=== PATIENT | female | born 1980 | race Caucasian/White ===

== ENCOUNTER → 2022-11-23 18:10 | Outpatient (BNVA) | payer OTHER, SELFPAY | PROVIDERS: Family Provider Nurse Practitioner Family; Visit Provider Emergency Medicine | DX: S99.912A Unspecified injury of left ankle, initial encounter (principal); S99.922A Unspecified injury of left foot, initial encounter; V49.9XXA Car occupant (driver) (passenger) injured in unspecified traffic accident, initial encounter; M79.89 Other specified soft tissue disorders | CPT/HCPCS: 73610; 73630 ==

== ENCOUNTER 2022-11-23 18:44 | Emergency (ER) | payer OTHER, SELFPAY ==
[2022-11-23 19:01] VITALS: BP 167/117; PULSE 104; RESP 16; TEMP 36.7; O2SAT 95; BMI 33.4
--- NOTE | 2022-11-23 19:10 | ED_ITS ---
HPI - Extremity Problem General: Chief complaint: Extremity Injury, Lower Stated complaint: left foot injury Time Seen by Provider: 11/23/22 19:02 Source: patient History of Present Illness: 42-year-old female sent from urgent care with a left distal fibular fracture. She reports falling out of a [id number], injuring her ankle. She is in quite a bit of pain. MD Complaint: extremity pain and joint pain Pain Consistency: constant Location: left and lower extremity Quality: aching Radiation: none Relieving factors: immobilization Exacerbating factors: range of motion and weight bearing Associated symptoms: Deny fever(s), rash or short of breath Context: other (Injury) Review of Systems Const: Denies: fever(s) Skin/Breast: Denies: rash Physical Exam Const: COMMON NORMALS: no acute distress GENERAL APPEARANCE: cooperative; not ill appearing HENMT: COMMON NORMALS: normocephalic and atraumatic HEAD & SCALP: normocephalic and atraumatic Eye: COMMON NORMALS: Equal, round and reactive pupils present and EOMs intact bilaterally PUPIL: Yes Equal, round and reactive pupils present Neck/C-Spine: GENERAL: Yes trachea midline Chest: CHEST: Yes Symmetrical chest wall rise Resp: COMMON NORMALS: normal respiratory effort, No use of accessory muscles and clear to auscultation bilaterally AUSCULTATION: clear to auscultation bilaterally Cardio: COMMON NORMALS: regular rate and regular rhythm RATE: regular rate RHYTHM: regular rhythm Extremity: NARRATIVE EXTREMITY EXAM: Exam reveals deformity to left ankle. There is no proximal tenderness of the leg. Pulses and sensation are intact. There is tenderness over the distal fibula and medial malleolus. Neuro: RONALD COMA SCALE: document GCS findings Ronald coma scale eye opening: Spontaneous [place] coma scale verbal response: Orientated Ronald coma scale motor response: Obey commands Ronald coma scale total score: 15 Course Vital Signs: Vital signs: Vital Signs Temperature 98.1 F 11/23/22 19:01 Pulse Rate 104 H 11/23/22 19:01 Respiratory Rate 16 11/23/22 19:01 Blood Pressure 167/117 11/23/22 19:01 Pulse Oximetry 95 11/23/22 19:01 Oxygen Delivery Me thod 11/23/22 19:01 MDM - Extremity (Nontraumatic) Medical Decision Making Patient is splinted at 90 degrees in a stirrup and short leg posterior splint. This is following an intramuscular injection of Dilaudid for pain control. Crutches for weightbearing. We will have her follow-up with foot and ankle surgery this week. She will likely require ORIF. Discharge Plan Discharge Patient Disposition: Home Clinical Impression: Ankle fracture Qualifiers: Encounter type: initial encounter Fracture type: closed Laterality: left Qualified Code(s): S82.892A - Other fracture of left lower leg, initial encounter for closed fracture Condition: Stable Prescriptions: New Percocet 7.5-325 mg tablet 1 tab PO Q6H PRN (Reason: pain) Qty: 10 0RF No Action medroxyprogesterone [Depo-Provera] 150 mg/mL syringe IM Discharge Orders: Discharge ED (Routine); Ordered 11/23/22 Ordered By: Kirt Pruitt Referrals: Steve Landon DPM [Physician] - 1-3 days Kaushal Bonilla [Primary Care Provider] - Patient Instructions: Ankle Fracture (ED), Opioid Safety, Pain Management Activity Restrictions/Additional Instructions: Return for worsening pain despite treatment, any other concerns. Case management has been consulted to make you an appointment with foot and ankle surgery/podiatry Coding Level of Care Code ED Wire Loop Machine Operator for Frank Meyer
[2022-11-23] MEDS: ondansetron 4 MG Tablet PO (19:26)
[2022-11-23] MEDS: oxyCODONE-APAP 5-325 mg Tablet 2 TAB PO (19:26)
[2022-11-23] MEDS: HYDROmorphone 1 mg/mL INJ 1 mL 2 MG IM (19:26)
--- NOTE | 2022-11-24 12:51 | DCPLANNER ---
Addendum entered by Rose Birch 11/25/22 14:15: Patient had an appointment scheduled with podiatry - patient did attend appointment. Original Note: manager video had message to schedule a follow up appointment for patient with podiatry. manager video sent patients information to the front office staff at podiatry. Patients information will be printed and reviewed. Clinic will call patient with appointment information.
== END 2022-11-23 20:04 | disposition home or self-care (01) ==
PROVIDERS: Emergency Provider Emergency Medicine; PCP Family Medicine
DX: S82.832A Other fracture of upper and lower end of left fibula, initial encounter for closed fracture (principal); W17.89XA Other fall from one level to another, initial encounter
CPT/HCPCS: 96372; 99284; E0114; J1170; Q0162

== ENCOUNTER 2022-11-26 15:29 | Outpatient (CLI) | payer OTHER, SELFPAY ==
--- NOTE | 2022-11-26 15:30 | CT_ITS ---
WS: [id number] CT LEFT ANKLE, NONCONTRAST, 3-D. HISTORY: Left Trimalleolar fracture- SURGICAL PLANNING Technique: All CT scans at [facility] use at least one of these dose optimization techniques: automated exposure control; mA and/or kV adjustment per patient size (includes targeted exams where dose is matched to clinical indication); or iterative reconstruction. DLP: 140.52 mGy.cm COMPARISON: 11/23/2022 Markedly comminuted fracture involving the distal fibula. Fracture involves the distal 4 cm of the fi bula with multiple fragments. There is lateral displacement by up to 4 mm. There are multiple small o sseous fragments in the talofibular joint space and also at the distal tibiofibular joint space. There is an additional fracture involving the lateral distal tibia extending over a length of 1.9 cm. Fracture is displaced from the parent bone by 6 mm. There are multiple small osseous fragments invol ving the lateral tibial cortex but fracture also extends to the tibiotalar joint space. The medial ma lleolus and the posterior malleolus are otherwise intact. There is mild persistent widening of the ankle mortise up to 4.6 mm but improved since the radiograph of 11/23/2022. Moderate-sized calcaneal spur measuring 8 mm. Anterior calcaneal process is intact. No talar fracture . Well-corticated osseous or calcific densities in the medial foot adjacent to the navicular. These a re not related to the trauma. Moderate soft tissue edema surrounding the ankle and foot. Small joint effusion at the ankle. Entheso pedro Achilles tendon. CT/CT ankle LT wo con* [id number] IMPRESSION: 1. Comminuted fracture distal 4 cm of the fibula with displacement of fracture fragments by 4 mm. 2. Additional fracture involving the lateral distal tibia displaced by 6 mm. T his fracture involves the lateral cortex but does extend to the tibiotalar dez culation. 3. There are multiple small osseous fragments from the injury that tibiotalar joint space. 4. No additional acute fractures. 5. Mild persistent widening of the ankle mortise but much improved as compared to 11/23/2022.
== END 2022-11-26 15:30 | disposition home or self-care (01) ==
PROVIDERS: PCP Family Medicine; Visit Provider Podiatrist Foot & Ankle Surgery
DX: S82.842A Displaced bimalleolar fracture of left lower leg, initial encounter for closed fracture (principal); S93.05XA Dislocation of left ankle joint, initial encounter; X58.XXXA Exposure to other specified factors, initial encounter
CPT/HCPCS: 73700

== ENCOUNTER 2022-11-28 10:27 | Day surgery (SDC) | payer OTHER, SELFPAY ==
[2022-11-27 08:18] VITALS: BMI 33.4
[2022-11-28] VITALS (11 sets, daily range): BP systolic 124–164; BP diastolic 77–108; PULSE 75–91; RESP 16–18; TEMP 36.1–36.6; O2SAT 96–100
[2022-11-28] MEDS: gabapentin 300 mg Capsule PO (11:02)
[2022-11-28] MEDS: CELEcoxib 200 mg Capsule 400 MG PO (11:03)
[2022-11-28] MEDS: sodium chloride 0.9% 1,000 ML 30 ML IV (11:04)
--- NOTE | 2022-11-28 11:08 | W.PM.OPSUD ---
Surgery/Procedure H&P Update DATE OF PROCEDURE: November 28, 2022 DATE H&P PERFORMED: 11/24/22 CHANGES TO PREVIOUS DOCUMENTATION: None PREOP DIAGNOSIS: Left trimalleolar fracture PLANNED PROCEDURE: Operation Date: 11/28/22 11:45 Proposed Procedures p Open reduction internal fixation left trimalleolar fracture 87665,S82.852A(Left) - Steve Landon DPM
--- NOTE | 2022-11-28 11:08 | PM.OP ---
Operative Report Date of procedure: November 28, 2022 Pre-op diagnosis: Preop Diagnosis Left trimalleolar fracture equivalent Post-op diagnosis: Same Post-op findings: Syndesmotic disruption appreciated as well as medial gutter widening consistent with deltoid ligament involvement Procedure done: Open reduction internal fixation left trimalleolar fracture [id number] Implants: Dennison anatomic fibular plate, Imer 3.5 mm locking and nonlocking screws, Arthrex tight rope XP, 2-0 Vicryl, 3-0 Vicryl, skin libia Surgeon: Steve Landon D.P.M. Data Integration Developer: Jana Covarrubias Estimated blood loss: 5 40 IV fluids: None Urine output: 0 Complications: None Brief History: Left trimalleolar equivalent fracture.? Date of injury 11/23/2022, [id number] injury X-ray taken 11/23/2022 in the emergency department consistent with trimalleolar equivalent with lateral displacement of the talus within the ankle mortise.? There is a comminuted fracture of the distal fibula, deltoid interruption with medial gutter widening and poorly visualized posterior malleolus fracture but will require CT scan for further evaluation and surgical planning. Remain strict nonweightbearing with posterior splint and elevate while resting. Will order CT scan left ankle without contrast, on oblique view I can visualize a posterior malleolus fracture would like to get better imaging on this for surgical planning.? Unable to visualize posterior malleolus fracture from the AP or lateral view on x-ray. patient to remain NWB in a splint utilizing a wheelchair scheduling surgery for an ORIF to the left ankle on Thursday11/28/22-we will perform soft tissue check in clinic evening Patient denies history of blood clots, no history of neoplasm, she is on depot Provera, does not smoke.? Advised aspirin to be taken daily after surgery to help potentially reduce the risk of deep vein thrombosis. I reviewed at length with the patient, the risks, potential complications, benefits, alternatives, expectations, and typical outcomes associated with the surgery. The risks and potential complications were explained in detail, including but not limited to infection, wound dehiscence or soft tissue complications, bleeding and hematoma, chronic edema, neuritis or nerve damage producing numbness or chronic pain, CRPS, failure to relieve pain or worsening pain, thick / painful / unsightly scar, limited motion / stiffness, malposition, delayed union, malunion, or nonunion, fracture, reaction to implants, anesthetic complications, venous thromboembolism, and deformity recurrence.? I discussed the notion of no regrets with the patient as it pertains to complications and outcomes. The patient seemed to understand the nature of the proposed care and required convalescence. They asked appropriate questions, answered to their satisfaction. They are aware no guarantees can be made as to a satisfactory outcome and they understand there may be other possible unforeseen complications or outcomes not listed here that will be treated accordingly if they arise. There were no written or implied guarantees given to the patient. They gave informed consent to proceed. Procedure: Under mild sedation the patient was brought to the operating room and placed on the operating table in supine position. A timeout was performed. Anesthesia was then administered by the anesthesia service. Of note popliteal block to the left lower extremity was performed per anesthesia service greatly appreciated. Well-padded pneumatic tourniquet applied to high calf to the left lower extremity. The left lower extremity was scrubbed, prepped and draped utilizing normal aseptic technique. Left foot and ankle were exanguinated with a Esmarch bandage and the tourniquet inflated to 250 mmHg. Attention was directed to the lateral aspect of the left ankle where the lateral malleolus was palpated. Directly over the lateral malleolus and over the distal fibula a linear longitudinal incision was made through skin with a number #15 blade with dissection carried down through subcu tissue to the layer periosteum. A comminuted fracture was appreciated at the lateral malleolus. Periosteum was left intact to help maintain fragment position. The lateral malleolus was reduced and pulled out to length and derotated followed by fixation utilizing standard AO technique and Dennison anatomic fibular plate with a combination of 3.5 locking and nonlocking screws with excellent bony apposition and compression noted. 4 screws proximal and 3 screws distal were performed followed by cotton hook test which yielded syndesmotic injury with increased tib-fib clear space and diastases intraoperatively. A Arthrex tight rope XP was then utilized to stabilize the syndesmosis from lateral to medial Quadra cortically approximately 2 cm proximal and parallel to the ankle mortise with excellent bony apposition and compression noted, this was tightened with ankle joint at neutral. Intraoperative C arm utilized to confirm excellent placement of hardware in all 3 standard views AP, oblique and lateral view, hardware did not violate the ankle mortise and anatomic reduction of the ankle mortise was appreciated and noted to be congruent. The incision was flushed with copious amounts of sterile skin solution and closed in a layered fashion. Periosteum and deep fascia closed with 2-0 Vicryl, subcutaneous tissue reapproximated 3-0 Vicryl and skin with libia. The incision was then dressed with Adaptic, sterile 4 x 4's, Kerlix. Of note patient had serous filled fracture blisters at the medial ankle that were left undisturbed and were not ruptured during the procedure, this was appreciated preoperatively. No fracture blisters appreciated laterally. A well-padded multilayer compressive posterior splint/Gaitan splint was then applied with ankle joint in neutral position. Tourniquet was then deflated and a prompt hyperemic response was noted to the distal digits of the left foot. Patient tolerated the procedure and anesthesia well and was transferred to the PACU with vital signs stable and vascular status intact. Following a period of postoperative monitoring she will be discharged home is to remain strict nonweightbearing, elevate her foot while resting, advised baby aspirin once daily to help potentially reduce her risk of deep vein thrombosis. Was given at home care treatments as well as follow-up in podiatry clinic next week.
--- NOTE | 2022-11-28 11:12 | ANES.PREANE2 ---
Pre-Anesthetic Assessment Height/Weight: Height 1.73 m Weight 99.79 kg Temp Pulse Resp BP Pulse Ox O2 Del Method 97.7 F 86 18 164/108 98 11/28/22 10:52 11/28/22 10:52 11/28/22 10:52 11/28/22 10:52 11/28/22 10:52 11/28/22 11:07 Preop Diagnosis: Left trimalleolar fracture Operation Date: 11/28/22 11:45 Proposed Procedures p Open reduction internal fixation left trimalleolar fracture 68105,S82.852A(Left) - Steve Landon DPM Familial anesthetic complications: none Was Beta Vielka taken within 24 hours: N/A Was Clonidine taken within 24 hours: N/A Last intake: Intake Last Liquid Date 11/27/22 Last Liquid Time 22:00 Last Solid Date 11/27/22 Last Solid Time 22:00 Last Intake: 22:00 Social No alcohol and No tobacco Exam alert, oriented x 3, clear to auscultation bilaterally and regular rate & rhythm Airway Submandibular: within normal limits Cervical ROM: within normal limits Mallampati: Class I Dentition: full Pulmonary None reported CV/HEM None reported None reported Hepatic None reported GI None reported Metabolic None reported Musc/skel None reported Neuropsych Headache (monthly) Anesthetic Plan Anesthesia: General and Regional (specify below) (pop block) Risk of > 500 ml blood loss (7ml/kg in children): No Medications/Allergies Home Medications Medication Instructions Recorded Confirmed Last Taken Type medroxyprogesterone 150 mg/mL 150 mg IM DIRECTED 11/23/22 11/28/22 10/31/22 History intramuscular syringe (Depo-Provera) oxycodone-acetaminophen 7.5 mg-325 1 tab PO Q6H PRN pain #10 tabs 11/23/22 11/28/22 11/27/22 Rx mg tablet (Percocet) oxycodone-acetaminophen 10 mg-325 1 tab PO Q6H PRN pain 7 days #28 11/26/22 11/27/22 Unknown Rx mg tablet (Percocet) tabs ondansetron HCl 8 mg tablet 8 mg PO Q8H PRN nausea and 11/28/22 Unknown Rx vomiting 7 days #21 tabs Allergies Allergy/AdvReac Type Severity Reaction Status Date / Time adhesive Allergy Mild rash Verified 11/26/22 15:03 Current Medications Generic Name Dose Route Start Last Admin Trade Name Freq PRN Reason Stop Dose Admin Sodium Chloride 1,000 mls @ 30 mls/hr 11/28/22 10:30 11/28/22 11:04 Sodium Chloride 0.9% IV 11/29/22 10:29 30 mls/hr .Q24H ALONZO Administration Data Anesthesia Cardiac Studies: No Data to Display
[2022-11-28 11:22] LABS: OR HCG Qualitative Urine Negative (Negative)
[2022-11-28] MEDS: ceFAZolin 2,000 MG in sodium chloride 0.9% (plus) 50 ML 100 MG IV (11:29)
--- NOTE | 2022-11-28 11:47 | ANES.PROC ---
Anesthesia Procedures Procedure/Date: 11/28/22 Nerve Block ^: Nerve Block 1: Main Anesthesia: general anesthesia Time Out Performed: Yes Consent: requested by attending/covering physician, from patient, risks and benefits reviewed and patient agrees to proceed Nerve block location: popliteal (left) Anesthesia monitors applied: pulse oximetry, EKG, BP cuff and oxygen Nerve block position: supine Anesthetic Used: ropivicaine 0.5% Amount of anesthesia used (mL): 30 Ultrasound used to: recognize landmarks Nerve Stimulator Used?: No Interscalene/Femoral BLK: 4 stimuplex 21 g needle used for position and inplane approach Injection: neg aspiration of heme Patient Tolerated Procedure: well Complications: none
--- NOTE | 2022-11-28 12:47 | XR_ITS ---
WS: [id number] XR ankle LT min 3V* [id number] REASON FOR EXAM: post op FINDINGS: Previous complex fracture dislocation of the the ankle with comminuted fracture of the distal fibula at the level of the syndesmosis associated with adjacent anterolateral tibial fracture. Fixation with plate and screw and transverse tibial fibular anchor across the syndesmosis. Fracture fragments are in good position and alignment. Surgical appliances are in proper position and alignment. Ankle mortise is intact. XR/XR ankle LT min 3V* [id number] IMPRESSION: Fixation of complex fracture dislocation of the left ankle as above.
--- NOTE | 2022-11-28 12:48 | PC.NURSE ---
pt arrived to PACU, sleepy but arousable. Dressing to left ankle C/D/I, cap refill <3 seconds, P/W/D, able to wiggle toes, FOB elevated.
[2022-11-28] MEDS: oxyCODONE-APAP 10-325 mg Tablet 1 TAB PO (13:40)
--- NOTE | 2022-11-28 15:47 | ANE.PACU2 ---
Inpatient post-anesthesia follow up: Airway intact: Yes Vital signs: Temperature 97 F Pulse Rate 84 Respiratory Rate 18 Blood Pressure 144/97 Pulse Oximetry 98 Oxygen Delivery Me thod Room Air Oxygen Flow Rate 6 Fraction of Inspir ed Oxygen Hydration adequate: Yes Nausea and vomiting: No Pain level: 2 Mental status: Baseline
== END 2022-11-28 13:54 | disposition home or self-care (01) ==
PROVIDERS: Anesthesiology; PCP Family Medicine; Visit Provider Podiatrist Foot & Ankle Surgery
PROC: (CPT 27822; principal; 2022-11-28 11:35)
DX: S82.852A Displaced trimalleolar fracture of left lower leg, initial encounter for closed fracture (principal); V86.99XA Unspecified occupant of other special all-terrain or other off-road motor vehicle injured in nontraffic accident, initial encounter
CPT/HCPCS: 27822; 73610; 76000; 81025; 84703; C1713; C9290; J0690; J1100; J1200; J2405; J2704; J2795; J3010; J3490; J7030

== ENCOUNTER → 2022-12-11 15:18 | Outpatient (BNVA) | payer OTHER, SELFPAY | PROVIDERS: PCP Family Medicine; Visit Provider Podiatrist Foot & Ankle Surgery | DX: S82.852D Displaced trimalleolar fracture of left lower leg, subsequent encounter for closed fracture with routine healing (principal); V86.99XD Unspecified occupant of other special all-terrain or other off-road motor vehicle injured in nontraffic accident, subsequent encounter | CPT/HCPCS: 73610 ==

== ENCOUNTER 2022-12-11 16:27 | Outpatient (CLI) | payer OTHER, SELFPAY | END 2022-12-11 16:28 | disposition home or self-care (01) | LOC: SPT 16:28 | PROVIDERS: PCP Family Medicine; Visit Provider Podiatrist Foot & Ankle Surgery | DX: Z46.89 Encounter for fitting and adjustment of other specified devices (principal); S82.852D Displaced trimalleolar fracture of left lower leg, subsequent encounter for closed fracture with routine healing; X58.XXXD Exposure to other specified factors, subsequent encounter | CPT/HCPCS: 97760; L4361 ==

== ENCOUNTER → 2023-01-08 13:39 | Outpatient (BNVA) | payer OTHER, SELFPAY | PROVIDERS: PCP Family Medicine; Visit Provider Podiatrist Foot & Ankle Surgery | DX: S82.852A Displaced trimalleolar fracture of left lower leg, initial encounter for closed fracture (principal); V86.99XA Unspecified occupant of other special all-terrain or other off-road motor vehicle injured in nontraffic accident, initial encounter | CPT/HCPCS: 73610 ==

== ENCOUNTER → 2023-02-05 12:59 | Outpatient (BNVA) | payer OTHER, SELFPAY | PROVIDERS: PCP Family Medicine; Visit Provider Podiatrist Foot & Ankle Surgery | DX: S82.852A Displaced trimalleolar fracture of left lower leg, initial encounter for closed fracture (principal); V86.99XA Unspecified occupant of other special all-terrain or other off-road motor vehicle injured in nontraffic accident, initial encounter | CPT/HCPCS: 73610 ==

== ENCOUNTER 2023-02-05 13:56 | Outpatient (CLI) | payer OTHER, SELFPAY | END 2023-02-05 13:57 | disposition home or self-care (01) | LOC: SPT 13:56 | PROVIDERS: PCP Family Medicine; Visit Provider Podiatrist Foot & Ankle Surgery | DX: Z46.89 Encounter for fitting and adjustment of other specified devices (principal); S82.852D Displaced trimalleolar fracture of left lower leg, subsequent encounter for closed fracture with routine healing; X58.XXXD Exposure to other specified factors, subsequent encounter | CPT/HCPCS: 97760; L1902 ==

== ENCOUNTER → 2023-02-19 14:44 | Outpatient (BNVA) | payer OTHER, SELFPAY | PROVIDERS: PCP Family Medicine; Visit Provider Podiatrist Foot & Ankle Surgery | DX: S82.852A Displaced trimalleolar fracture of left lower leg, initial encounter for closed fracture (principal); V86.99XA Unspecified occupant of other special all-terrain or other off-road motor vehicle injured in nontraffic accident, initial encounter | CPT/HCPCS: 73610 ==

== ENCOUNTER → 2024-08-01 08:11 | Outpatient (BNVA) | payer OTHER, SELFPAY | PROVIDERS: PCP Family Medicine; Visit Provider Podiatrist Foot & Ankle Surgery | DX: T84.84XA Pain due to internal orthopedic prosthetic devices, implants and grafts, initial encounter (principal); Y79.2 Prosthetic and other implants, materials and accessory orthopedic devices associated with adverse incidents; M79.672 Pain in left foot; M25.572 Pain in left ankle and joints of left foot; G89.29 Other chronic pain; S93.432S Sprain of tibiofibular ligament of left ankle, sequela; M72.2 Plantar fascial fibromatosis; G57.62 Lesion of plantar nerve, left lower limb | CPT/HCPCS: 73610; 73630 ==